=== PATIENT | female | born 2005 | race Caucasian/White ===

== ENCOUNTER 2024-08-21 12:59 | Emergency (ER) | payer SELFPAY ==
[~2024-08-21] VITALS: Ht 167.6 cm; Wt 108.5 kg
[2024-08-21 13:03] VITALS: BP 138/85; TEMP 97.3; O2SAT 95
== END 2024-08-21 13:41 | disposition admitted as inpatient to this hospital (09) ==
LOC: M ED 12:59
DX: O26.893 Other specified pregnancy related conditions, third trimester (principal); M54.50 Low back pain, unspecified; E28.2 Polycystic ovarian syndrome; Z3A.28 28 weeks gestation of pregnancy

== ENCOUNTER 2024-08-21 13:42 | Outpatient (CLI) | payer BC, SELFPAY ==
[~2024-08-21] VITALS: Ht 167.6 cm; Wt 108.0 kg
[2024-08-21 14:06] VITALS: BP 158/90
[2024-08-21 14:29] VITALS: BP 146/83
[2024-08-21 15:20] VITALS: BP 131/82
[2024-08-21 16:31] LABS: HEMATOCRIT 32.6 % (36.0-47.0); HEMOGLOBIN 10.9 g/dl (12.0-15.5); MEAN CORPUSCULAR HEMOGLOBIN 28.8 pg (27.0-33.0); MEAN CORPUSCULAR HGB CONC 33.4 g/dl (32.0-36.5); MEAN CORPUSCULAR VOLUME 86.2 fl (80.0-96.0); PLATELET COUNT, AUTOMATED 245 10^3/uL (150-450); RED BLOOD COUNT 3.78 10^6/uL (4.00-5.40); WHITE BLOOD COUNT 10.8 10^3/uL (4.0-10.0)
[2024-08-21 17:00] LABS: HEPATITIS B SURFACE ANTIGEN NEGATIVE (NEGATIVE)
[2024-08-21 17:12] LABS: HIV 1&2 SCREEN NEGATIVE (NEGATIVE)
[2024-08-21 17:13] LABS: HEMOGLOBIN A1c 4.6 % (4.0-6.0)
[2024-08-21 17:21] LABS: HEPATITIS C VIRUS ABY INDEX 0.07 INDEX (<0.8)
[2024-08-21] MEDS ORDERED: HOME MED LIST COMPLETE! XX SCH (18:00)
[2024-08-21 18:53] LABS: Trichomonas vaginalis (AMP) NOT DETECTED (NEGATIVE)
[2024-08-21 19:17] LABS: GC DNA AMPLIFICATION NEGATIVE (NEGATIVE)
== END 2024-08-21 16:15 | disposition home or self-care (01) ==
LOC: M LDO 13:42
PROVIDERS: ATTEND Advanced Practice Midwife
DX: O26.893 Other specified pregnancy related conditions, third trimester (principal); O09.33 Supervision of pregnancy with insufficient antenatal care, third trimester; R10.30 Lower abdominal pain, unspecified; M54.50 Low back pain, unspecified; Z3A.29 29 weeks gestation of pregnancy
CPT/HCPCS: 36415; 59025; 76815; 83036; 85027; 86780; 86803; 86850; 86900; 86901; 87086; 87340; 87389; 87661; 87810; 87850; G0463

== ENCOUNTER → 2024-08-30 | Outpatient (CLI) | payer BC | LOC: M PLALAB 10:06 | PROVIDERS: ATTEND Advanced Practice Midwife | DX: Z34.03 Encounter for supervision of normal first pregnancy, third trimester (principal) ==

== ENCOUNTER → 2024-09-04 | Outpatient (CLI) | payer BC ==
[2024-09-04 15:45] LABS: HEMATOCRIT 34.7 % (36.0-47.0); HEMOGLOBIN 11.5 g/dl (12.0-15.5); MEAN CORPUSCULAR HGB CONC 33.1 g/dl (32.0-36.5); MEAN CORPUSCULAR VOLUME 87.6 fl (80.0-96.0); PLATELET COUNT, AUTOMATED 288 10^3/uL (150-450); RED BLOOD COUNT 3.96 10^6/uL (4.00-5.40); WHITE BLOOD COUNT 12.2 10^3/uL (4.0-10.0)
[2024-09-04 16:15] LABS: GLUCOSE CHALLENGE TEST 1 HOUR 90 MG/DL (LESS THAN 140)
[2024-09-04 16:37] LABS: HIV 1&2 SCREEN NEGATIVE (NEGATIVE)
[2024-09-04 16:56] LABS: Trichomonas vaginalis (AMP) NOT DETECTED (NEGATIVE)
[2024-09-04 17:20] LABS: GC DNA AMPLIFICATION NEGATIVE (NEGATIVE)
== END ==
LOC: M PLALAB 11:51
PROVIDERS: ATTEND Advanced Practice Midwife
DX: Z34.03 Encounter for supervision of normal first pregnancy, third trimester (principal); Z3A.00 Weeks of gestation of pregnancy not specified

== ENCOUNTER → 2024-09-04 | Outpatient (CLI) | payer BC | LOC: M WHC 10:20 | PROVIDERS: ATTEND Advanced Practice Midwife | DX: Z34.03 Encounter for supervision of normal first pregnancy, third trimester (principal); Z3A.31 31 weeks gestation of pregnancy ==